=== PATIENT | male | born 1965 | race Caucasian/White ===

== ENCOUNTER 2024-09-02 07:20 | Day surgery (SDC) | payer OTHER ==
[~2024-09-02 07:20] MED LIST: Sodium Chloride 0.9% 10 ML Syringe FLUSH PRN; Sodium Chloride 0.9% 10 ML Syringe FLUSH SCH
[2024-09-02] MEDS ORDERED: fentaNYL 250 MCG/5 ML SDV ONE (07:31)
[2024-09-02] MEDS ORDERED: Ondansetron 4 MG/2 ML SDV ONE (07:31)
[2024-09-02] MEDS ORDERED: Propofol 200 MG/20 ML SDV ONE (07:31)
[2024-09-02] MEDS ORDERED: Midazolam 1 MG/ML 2 ML SDV ONE (07:31)
[2024-09-02] MEDS ORDERED: Lidocaine 1% 5 ML VIAL ONE (07:31)
[2024-09-02] MEDS ORDERED: ceFAZolin 2 GM Vial ONE (07:32)
[2024-09-02] MEDS: Lactated Ringers 1,000 ML IV SCH (07:45)
[2024-09-02] MEDS ORDERED: fentaNYL 100 MCG/2 ML SDV IVPUSH PRN (08:06)
[2024-09-02] MEDS ORDERED: droPERidol 5 MG/2 ML SDV IVPUSH PRN (08:06)
[2024-09-02] MEDS ORDERED: Ondansetron 4 MG/2 ML SDV IVPUSH PRN (08:06)
[2024-09-02] MEDS ORDERED: Ketorolac 30 MG/ML SDV ONE (09:22)
[2024-09-02] MEDS: Bupivacaine 0.25% 10 ML SDV ONE (09:58)
[2024-09-02] MEDS: Acetaminophen/Codeine 300-30 MG Tab PO PRN (11:00)
[2024-09-02 15:18] VITALS: BP 107/79; PULSE 53
== END 2024-09-02 13:40 | disposition home or self-care (01) ==
LOC: JD.SDS 07:20
PROVIDERS: ATTEND Orthopaedic Surgery
DX: M70.21 Olecranon bursitis, right elbow (principal); Z88.5 Allergy status to narcotic agent; Z88.8 Allergy status to other drugs, medicaments and biological substances; Z79.899 Other long term (current) drug therapy
CPT/HCPCS: 24105; A9270; J0665; J0690; J1885; J2250; J2405; J2704; J3010; J7120; J3490